=== PATIENT | male | born 1965 | race African-American/Black ===

== ENCOUNTER 2019-07-03 11:24 | Outpatient (CLI) | payer OTHER ==
--- NOTE | 2019-07-03 11:38 | RAD ---
XR Knee Lt 4 View STANDARD HISTORY: Left knee pain FINDINGS: No fracture or dislocation is identified. Mild-moderate degenerative changes present.
--- NOTE | 2019-07-03 11:40 | RAD ---
XR Knee Rt 4 View STANDARD HISTORY: Right knee pain FINDINGS: No fracture or dislocation is identified. Mild-moderate degenerative changes are present.
== END 2019-07-03 11:25 | disposition home or self-care (01) ==
LOC: RAD-FRANK 11:24
PROVIDERS: ATTEND Internal Medicine
DX: M17.0 Bilateral primary osteoarthritis of knee (principal)